=== PATIENT | female | born 2005 | race Caucasian/White ===

== ENCOUNTER 2023-03-22 17:20 | Emergency (ER) | payer OTHER ==
[2023-03-22] MEDS ORDERED: Ketorolac Tromethamine 30 MG (1 mL) VIAL ONE (17:57)
[2023-03-22] MEDS ORDERED: Acetaminophen 500 MG TAB ONE (17:57)
[2023-03-22 18:21] LABS: #Monocytes 0.7 thou/uL (0.11-0.59); #Neutrophils 4.4 thou/uL (1.40-6.50); %Basophils 0.5 % (0.0-1.0); %Lymphocytes 7.6 % (28.0-48.0); %Monocytes 12.3 % (0.0-4.0); %Neutrophils 79.2 % (31.0-61.0); Hematocrit 39.9 % (36.0-47.0); Hemoglobin 13.3 g/dL (12.0-16.0); Mean Corpuscular HGB CONC 33.3 g/dL (32.0-36.0); Mean Corpuscular Hemoglobin 28.9 pg (25.0-35.0); Mean Corpuscular Volume 86.6 fl (78.0-98.0); Mean Platelet Volume 10.7 fL (7.4-10.4); Platelet Count 164 10x3/uL (130-400); RBC Distribution Width 12.5 % (11.5-14.5); Red Blood Cell (RBC) Count 4.61 mill/uL (4.00-5.20); White Blood Cell (WBC) Count 5.5 10x3/uL (4.8-10.8)
[2023-03-22 18:45] LABS: ALT (SGPT) 10 U/L (8-55); AST (SGOT) 14 U/L (5-34); Albumin 4.5 g/dL (3.5-5.0); Alkaline Phosphatase 36 U/L (40-100); Anion Gap 9 mmol/L (10-20); BUN (Urea Nitrogen) 9 mg/dL (7.0-18.7); Bilirubin, Total 0.4 mg/dL (0.2-1.2); Calc. Creatinine Clearance 0 mL/min (70-130); Calcium 9.2 mg/dL (7.8-10.44); Carbon Dioxide 28 mmol/L (22-29); Chloride 104 mmol/L (98-107); Estimated GFR 108; Globulin 2.6 g/dL (2.4-3.5); Glucose 94 mg/dL (70-105); Potassium 3.6 mmol/L (3.5-5.1); Protein, Total 7.1 g/dL (6.0-8.3); Sodium 137 mmol/L (136-145)
[2023-03-22 18:48] LABS: Troponin I Less than 0.010 ng/mL (< 0.028)
[2023-03-22 18:52] LABS: BHCG - Serum Negative (NEGATIVE); Pregs Control Background? CLEAR/WHITE (CLR/WHITE); Pregs Control Bar Appear? YES (CONTROL BAR)
== END 2023-03-22 19:24 | disposition home or self-care (01) ==
LOC: ERS 17:20
DX: R07.89 Other chest pain (principal); R50.9 Fever, unspecified
CPT/HCPCS: 71275; 80053; 84703; 85025; 85379; 87635; 87804; 93005; 96374; J1885